=== PATIENT | female | born 1950 | race Caucasian/White ===

== ENCOUNTER 2022-02-18 09:39 | Outpatient (CLI) | payer MEDICARE, OTHER | END 2022-02-18 09:40 | disposition home or self-care (01) | LOC: RAD 09:39 | PROVIDERS: ATTEND Internal Medicine Critical Care Medicine | DX: R06.00 Dyspnea, unspecified (principal) | CPT/HCPCS: 71046 ==

== ENCOUNTER 2022-07-02 10:59 | Emergency (ER) | payer MEDICARE ==
[2022-07-02] MEDS ORDERED: Ketorolac Tromethamine 30 MG/ML VIAL ONE (12:12)
[2022-07-02] MEDS ORDERED: Ondansetron ODT 4 MG TAB ONE ×2 (13:21→13:50)
== END 2022-07-02 14:52 | disposition home or self-care (01) ==
LOC: ERS 10:59
DX: N20.0 Calculus of kidney (principal); I11.0 Hypertensive heart disease with heart failure; I50.9 Heart failure, unspecified; E11.9 Type 2 diabetes mellitus without complications; I25.10 Atherosclerotic heart disease of native coronary artery without angina pectoris; J44.9 Chronic obstructive pulmonary disease, unspecified; Z79.899 Other long term (current) drug therapy
CPT/HCPCS: 72100; 74176; 96372; J1885; Q0162

== ENCOUNTER → 2022-07-09 | Day surgery (SDC) | payer MEDICARE, OTHER | END | disposition home or self-care (01) | LOC: NM 10:18 | PROVIDERS: ATTEND Specialist | DX: E21.3 Hyperparathyroidism, unspecified (principal) | CPT/HCPCS: 78072; A9500 ==

== ENCOUNTER 2022-10-25 14:17 | Outpatient (CLI) | payer MEDICARE, OTHER | END 2022-10-25 14:18 | disposition home or self-care (01) | LOC: SCSMRI 14:17 | PROVIDERS: ATTEND Neurological Surgery | DX: N20.0 Calculus of kidney (principal); M54.2 Cervicalgia; M54.50 Low back pain, unspecified; M47.812 Spondylosis without myelopathy or radiculopathy, cervical region; M51.36 Other intervertebral disc degeneration, lumbar region; M47.816 Spondylosis without myelopathy or radiculopathy, lumbar region; M48.061 Spinal stenosis, lumbar region without neurogenic claudication; Z98.890 Other specified postprocedural states | CPT/HCPCS: 72141; 72148; 74018 ==